=== PATIENT | female | born 1940 | race Caucasian/White ===

== ENCOUNTER → 2020-02-12 14:26 | Outpatient (BNVA) | payer MEDICARE, OTHER, SELFPAY | PROVIDERS: PCP Internal Medicine Medical Oncology; Visit Provider Internal Medicine | DX: I82.409 Acute embolism and thrombosis of unspecified deep veins of unspecified lower extremity (principal); Z79.01 Long term (current) use of anticoagulants; Z51.81 Encounter for therapeutic drug level monitoring | CPT/HCPCS: 85610; 99211; 99212 ==

== ENCOUNTER → 2020-02-17 14:44 | Outpatient (BNVA) | payer MEDICARE, OTHER, SELFPAY | PROVIDERS: PCP Internal Medicine Medical Oncology; Visit Provider Internal Medicine | DX: I82.409 Acute embolism and thrombosis of unspecified deep veins of unspecified lower extremity (principal); Z51.81 Encounter for therapeutic drug level monitoring; Z79.01 Long term (current) use of anticoagulants | CPT/HCPCS: 85610; 99211 ==

== ENCOUNTER → 2020-02-24 14:05 | Outpatient (BNVA) | payer MEDICARE, OTHER, SELFPAY | PROVIDERS: PCP Internal Medicine Medical Oncology; Visit Provider Internal Medicine | DX: Z86.718 Personal history of other venous thrombosis and embolism (principal); Z51.81 Encounter for therapeutic drug level monitoring; Z79.01 Long term (current) use of anticoagulants | CPT/HCPCS: 85610; 99211 ==

== ENCOUNTER → 2020-03-05 14:24 | Outpatient (BNVA) | payer MEDICARE, OTHER, SELFPAY | PROVIDERS: PCP Internal Medicine Medical Oncology; Visit Provider Internal Medicine | DX: I82.409 Acute embolism and thrombosis of unspecified deep veins of unspecified lower extremity (principal); Z51.81 Encounter for therapeutic drug level monitoring; Z79.01 Long term (current) use of anticoagulants | CPT/HCPCS: 85610; 99211 ==

== ENCOUNTER → 2020-03-23 10:35 | Outpatient (BNVA) | payer MEDICARE, OTHER, SELFPAY | PROVIDERS: PCP Internal Medicine Medical Oncology; Visit Provider Internal Medicine | DX: I82.409 Acute embolism and thrombosis of unspecified deep veins of unspecified lower extremity (principal); Z51.81 Encounter for therapeutic drug level monitoring; Z79.01 Long term (current) use of anticoagulants | CPT/HCPCS: 85610; 99211 ==

== ENCOUNTER → 2020-04-06 10:13 | Outpatient (BNVA) | payer MEDICARE, OTHER, SELFPAY | PROVIDERS: PCP Internal Medicine Medical Oncology; Visit Provider Internal Medicine | DX: I82.409 Acute embolism and thrombosis of unspecified deep veins of unspecified lower extremity (principal); Z51.81 Encounter for therapeutic drug level monitoring; Z79.01 Long term (current) use of anticoagulants | CPT/HCPCS: 85610; 99211 ==

== ENCOUNTER → 2020-04-10 11:29 | Outpatient (BNVA) | payer MEDICARE, OTHER, SELFPAY | PROVIDERS: PCP Internal Medicine Medical Oncology; Visit Provider Internal Medicine | DX: I82.409 Acute embolism and thrombosis of unspecified deep veins of unspecified lower extremity (principal); Z51.81 Encounter for therapeutic drug level monitoring; Z79.01 Long term (current) use of anticoagulants | CPT/HCPCS: 85610; 99211 ==

== ENCOUNTER → 2020-04-22 09:40 | Outpatient (BNVA) | payer MEDICARE, OTHER, SELFPAY | PROVIDERS: PCP Internal Medicine Medical Oncology; Visit Provider Internal Medicine | DX: I82.409 Acute embolism and thrombosis of unspecified deep veins of unspecified lower extremity (principal); Z51.81 Encounter for therapeutic drug level monitoring; Z79.01 Long term (current) use of anticoagulants | CPT/HCPCS: 85610; 99211 ==

== ENCOUNTER → 2020-04-27 14:10 | Outpatient (BNVA) | payer MEDICARE, OTHER, SELFPAY | PROVIDERS: PCP Internal Medicine Medical Oncology; Visit Provider Internal Medicine | DX: I82.409 Acute embolism and thrombosis of unspecified deep veins of unspecified lower extremity (principal); Z51.81 Encounter for therapeutic drug level monitoring; Z79.01 Long term (current) use of anticoagulants | CPT/HCPCS: 85610; 99211 ==

== ENCOUNTER → 2020-05-05 13:39 | Outpatient (BNVA) | payer MEDICARE, OTHER, SELFPAY | PROVIDERS: PCP Internal Medicine Medical Oncology; Visit Provider Internal Medicine | DX: I82.409 Acute embolism and thrombosis of unspecified deep veins of unspecified lower extremity (principal); Z51.81 Encounter for therapeutic drug level monitoring; Z79.01 Long term (current) use of anticoagulants | CPT/HCPCS: 85610; 99211 ==

== ENCOUNTER 2021-05-19 10:46 | Outpatient (REF) | payer MEDICARE, OTHER, SELFPAY ==
[2021-05-19 13:47] LABS: MANUAL DIFF FLAG NO
[2021-05-19 13:57] LABS: Basophils Absolute Auto 0.1 X10*3/uL (0.0-0.2); Basophils Percent Auto 0.8 % (0-2); Eosinophils Absolute Auto 0.1 X10*3/uL (0.0-0.4); Eosinophils Percent Auto 1.3 % (0-4); Hematocrit 41.2 % (37.0-47.0); Hemoglobin 13.2 g/dl (12.0-16.0); Imm Gran Abs Auto 0.05 X10*3/uL (0.00-0.03); Imm Gran Pct Auto 0.5 % (0.0-0.4); Lymphocytes Absolute Auto 2.5 X10*3/uL (1.2-4.9); Lymphocytes Percent Auto 24.6 % (20-40); Mean Corpuscular Hemoglobin 33.1 pg (27.0-33.0); Mean Corpuscular Volume 103.3 fL (80.0-98.0); Mean Platelet Volume 10.4 fL (9.4-12.3); Monocytes Absolute Auto 0.8 X10*3/uL (0.1-1.2); Monocytes Percent Auto 7.8 % (2-11); Neutrophils Absolute Auto 6.6 x10*3/uL (2.0-8.3); Platelet Count 281 X10*3/uL (160-400); Red Blood Count 3.99 X10*6/uL (4.20-5.50); Red Cell Distribution Width 13.9 % (11.0-16.0); White Blood Count 10.2 X10*3/uL (4.8-10.8)
[2021-05-19 14:20] LABS: Alanine Aminotransferase 83 U/L (0-31); Alkaline Phosphatase 250 U/L (39-117); Anion Gap 16 (12-20); Aspartate Amino Transferase 29 U/L (5-31); Bilirubin Total 0.6 mg/dL (0.0-1.0); Blood Urea Nitrogen 23 mg/dL (9-16); Carbon Dioxide 23 mmol/L (22-29); Chloride 107 mmol/L (96-108); Cholesterol 171 mg/dL; Estimated Glomerular Filt Rate 54; Glucose Random 97 mg/dL (60-115); HDL Cholesterol 50 mg/dL; LDL Cholesterol Calculated 91 mg/dl; Potassium 4.8 mmol/L (3.3-5.1); Sodium 141 mmol/L (135-145); Total Protein 6.6 g/dL (6.5-8.0); Triglycerides 152 mg/dL
[2021-05-19 14:30] LABS: Vitamin D 25-OH Total 34.5 ng/mL (>30)
[2021-05-19 14:52] LABS: Calcium 9.8 mg/dL (8.4-10.2)
== END 2021-05-19 10:47 | disposition home or self-care (01) ==
LOC: HO.10HDL 10:46
PROVIDERS: PCP Internal Medicine Medical Oncology; Visit Provider Internal Medicine Medical Oncology
DX: I10 Essential (primary) hypertension (principal); E78.5 Hyperlipidemia, unspecified; E55.9 Vitamin D deficiency, unspecified
CPT/HCPCS: 36415; 80053; 80061; 82306; 85025

== ENCOUNTER 2021-10-07 09:25 | Outpatient (REF) | payer MEDICARE, OTHER, SELFPAY ==
--- NOTE | ~2021-10-07 | MM_ITS ---
EXAMINATION: MM SCREENING DIGITAL BREAST TOMOSYNTHESIS, BILATERAL CLINICAL INFORMATION: Screening. Asymptomatic. The lifetime risk of breast cancer based on the Tyrer-Cuzick Model is 0.8%. COMPARISON: Mammography: November 21, 2016 and studies dating back to April 09, 2009 TECHNIQUE: Digital breast tomosynthesis is performed in both the craniocaudal and mediolateral oblique views along with computer-aided detection (CAD). Synthesized 2D images are generated from the tomosynthesis. FINDINGS: There are scattered areas of fibroglandular density (ACR BI-RADS breast composition Category b). There are no significant masses, abnormal calcifications, or other abnormalities. There is stable bilateral nipple inversion. MM/MM tomosynthesis screening BI IMPRESSION: There are no significant changes from prior study. ASSESSMENT: BI-RADS 1: Negative RECOMMENDATION: Routine annual mammography screening. This patient's information was entered into a reminder system with a target due date for their next mammogram.
== END 2021-10-07 09:26 | disposition home or self-care (01) ==
LOC: HO.MAMMO 09:25
PROVIDERS: PCP Internal Medicine Medical Oncology; Visit Provider Internal Medicine Medical Oncology
DX: Z12.31 Encounter for screening mammogram for malignant neoplasm of breast (principal)
CPT/HCPCS: 77063; 77067

== ENCOUNTER 2022-04-29 13:24 | Outpatient (REF) | payer MEDICARE, OTHER, SELFPAY ==
[2022-04-29 13:39] LABS: MANUAL DIFF FLAG NO
[2022-04-29 14:33] LABS: Basophils Absolute Auto 0.1 X10*3/uL (0.0-0.2); Basophils Percent Auto 0.8 % (0-2); Eosinophils Absolute Auto 0.1 X10*3/uL (0.0-0.4); Eosinophils Percent Auto 1.3 % (0-4); Imm Gran Abs Auto 0.03 X10*3/uL (0.00-0.03); Imm Gran Pct Auto 0.3 % (0.0-0.4); Lymphocytes Absolute Auto 4.1 X10*3/uL (1.2-4.9); Lymphocytes Percent Auto 36.7 % (20-40); Mean Corpuscular HGB Conc 32.6 g/dl (31.0-35.0); Mean Corpuscular Hemoglobin 33.7 pg (27.0-33.0); Mean Corpuscular Volume 103.6 fL (80.0-98.0); Monocytes Absolute Auto 0.6 X10*3/uL (0.1-1.2); Monocytes Percent Auto 5.7 % (2-11); Neutrophils Absolute Auto 6.2 x10*3/uL (2.0-8.3); Neutrophils Percent Auto 55.2 % (45-73); Platelet Count 263 X10*3/uL (160-400); Red Blood Count 4.15 X10*6/uL (4.20-5.50); Red Cell Distribution Width 13.7 % (11.0-16.0); White Blood Count 11.1 X10*3/uL (4.8-10.8)
[2022-04-29 15:48] LABS: Alanine Aminotransferase 11 U/L (0-31); Albumin Level 4.2 g/dL (3.5-5.0); Alkaline Phosphatase 90 U/L (39-117); Anion Gap 14 (12-20); Aspartate Amino Transferase 17 U/L (5-31); Bilirubin Total 0.8 mg/dL (0.0-1.0); Blood Urea Nitrogen 12 mg/dL (9-16); Calcium 9.5 mg/dL (8.4-10.2); Carbon Dioxide 23 mmol/L (22-29); Chloride 109 mmol/L (96-108); Cholesterol 186 mg/dL; Estimated Glomerular Filt Rate > 60; Glucose Fasting 91 mg/dL (60-99); HDL Cholesterol 60 mg/dL; LDL Cholesterol Calculated 101 mg/dl; Potassium 4.3 mmol/L (3.3-5.1); Sodium 142 mmol/L (135-145); Total Protein 6.5 g/dL (6.5-8.0); Triglycerides 125 mg/dL
[2022-04-29 16:18] LABS: Folate 4.1 ng/mL (> or = 4.0); Vitamin B12 252 pg/mL (200-900)
== END 2022-04-29 13:25 | disposition home or self-care (01) ==
LOC: HO.LAB 13:24
PROVIDERS: PCP Internal Medicine Medical Oncology; Visit Provider Internal Medicine Medical Oncology
DX: E78.5 Hyperlipidemia, unspecified (principal); E66.3 Overweight; D75.89 Other specified diseases of blood and blood-forming organs
CPT/HCPCS: 36415; 80053; 80061; 82607; 82746; 85025

== ENCOUNTER 2023-03-27 17:06 | Outpatient (REF) | payer MEDICARE, OTHER, SELFPAY | END 2023-03-27 17:07 | disposition home or self-care (01) | LOC: HO.LNP 17:06 | PROVIDERS: Visit Provider Internal Medicine Medical Oncology | DX: H57.89 Other specified disorders of eye and adnexa (principal) | CPT/HCPCS: 87070; 87205 ==

== ENCOUNTER 2023-06-05 14:27 | Outpatient (REF) | payer MEDICARE, OTHER, SELFPAY ==
--- NOTE | ~2023-06-05 | XR_ITS ---
EXAMINATION: XR HAND, RIGHT XR HIP, RIGHT CLINICAL INFORMATION: Right-sided hand pain and hip pain COMPARISON: CT abdomen pelvis 01/24/2017 TECHNIQUE: 5 views of the right hand and wrist Two views of the right hip. FINDINGS: Hand and wrist: Marked degenerative changes are present at the first CMC joint. Degenerative changes are present at the interphalangeal joints, most marked at the first DIP joint with marked swelling and osteophytes. Vascular calcifications are seen. No acute fractures or dislocations are seen. Some scattered areas of periarticular calcification are noted. Right hip: Right total hip prosthesis is present. Prosthetic components are intact. There is no evidence of a fracture or dislocation. XR/XR hand wrist RT IMPRESSION: 1. Degenerative changes in the right hand and wrist as described above. 2. Right total hip prosthesis without evidence of complication.
--- NOTE | ~2023-06-05 | XR_ITS ---
EXAMINATION: XR HAND, RIGHT XR HIP, RIGHT CLINICAL INFORMATION: Right-sided hand pain and hip pain COMPARISON: CT abdomen pelvis 01/24/2017 TECHNIQUE: 5 views of the right hand and wrist Two views of the right hip. FINDINGS: Hand and wrist: Marked degenerative changes are present at the first CMC joint. Degenerative changes are present at the interphalangeal joints, most marked at the first DIP joint with marked swelling and osteophytes. Vascular calcifications are seen. No acute fractures or dislocations are seen. Some scattered areas of periarticular calcification are noted. Right hip: Right total hip prosthesis is present. Prosthetic components are intact. There is no evidence of a fracture or dislocation. XR/XR hip RT min 2V IMPRESSION: 1. Degenerative changes in the right hand and wrist as described above. 2. Right total hip prosthesis without evidence of complication.
== END 2023-06-05 14:28 | disposition home or self-care (01) ==
LOC: HO.XRAY 14:27
PROVIDERS: PCP Internal Medicine Medical Oncology; Visit Provider Internal Medicine Medical Oncology
DX: M25.551 Pain in right hip (principal); M79.641 Pain in right hand
CPT/HCPCS: 73110; 73130; 73502

== ENCOUNTER 2023-07-04 13:38 | Emergency (ER) | payer MEDICARE, OTHER, SELFPAY ==
--- NOTE | ~2023-07-04 | CT_ITS ---
EXAMINATION: CT HEAD WITHOUT CONTRAST CT CERVICAL SPINE WITHOUT CONTRAST CLINICAL INFORMATION: Fall. On Eliquis COMPARISON: CT head September 28, 2017 TECHNIQUE: Imaging was performed from the skull base to vertex without intravenous administration of contrast. In addition, helical noncontrast CT imaging was acquired through the cervical spine and source images were reviewed along with axial reconstructions and sagittal and coronal MPRs. [This CT examination was performed using dose optimization techniques as appropriate, variously including the following: *Automated exposure control *Adjustment of mA and/or kV according to patient size (this includes techniques or standardized protocols for targeted exams where dose is matched to indication/reason for exam; i.e. extremities or head) *Use of iterative reconstruction technique] DLP: 866 mGy-cm FINDINGS: HEAD: No intracranial mass, hemorrhage, or midline shift is visualized. There is generalized global volume loss. There is moderate prominence of the ventricles and the sulci . There is mild hypodensity of the periventricular white matter due to chronic small vessel ischemic disease. There are vascular calcifications of the internal carotid arteries bilaterally. No extra-axial collections are identified. The paranasal sinuses and mastoid air cells are well aerated. CERVICAL SPINE: There is no evidence of acute cervical spine fracture. Vertebral bodies remain normal in height. Cervical vertebrae have normal alignment. There is multilevel degenerative spondylosis of the cervical spine with disc height narrowing and endplate spurs and facet joint arthrosis No pre- or paravertebral soft tissue abnormality is identified. Limited assessment of the lung apices is unremarkable. CT/CT cervical spine wo IV con IMPRESSION: 1. No acute intracranial pathology. 2. No CT evidence of acute cervical spine fracture or traumatic subluxation
--- NOTE | ~2023-07-04 | XR_ITS ---
EXAMINATION: XR HAND/WRIST, RIGHT CLINICAL INFORMATION: Fall, pain, decreased range of motion of fingers. COMPARISON: X-ray 06/05/2023 TECHNIQUE: 5 views of the right hand and wrist. FINDINGS: Osteopenia. There is a mildly displaced distal radial fracture. There is cortical offset in the distal ulna, suspicious for a mildly displaced fracture. Ulna negative variance. There is an acute, mildly displaced fracture of the proximal shaft of the fourth proximal phalanx. Mildly displaced fracture of the proximal base of the fourth proximal phalanx,, with likely intra-articular extension. Findings new from previous. Fourth finger soft tissue swelling. There is deformity and overlapping osseous structures in the distal fifth metatarsal neck,, suspicious for a fracture. Deformity with mixed lucencies and sclerosis of the distal fourth metatarsal neck, from possible fracture. Clinically correlate. The fingers are flexed in positioning, limiting evaluation. Severe first CMC osteoarthritis. Ulna negative variance. Vascular calcification. Soft tissue swelling of the wrist. XR/XR hand wrist RT IMPRESSION: 1. Acute, mildly displaced distal radial fracture. 2. Suspected acute mildly displaced distal ulnar fracture. 3. Acute, displaced fourth proximal phalanx fracture, detailed above. 4. Question fractures of the distal fifth metacarpal neck and fourth metacarpal neck. This is of indeterminate age. Clinically correlate. 5. Osteopenia limits evaluation. 6. Soft tissue swelling.
[2023-07-04 14:09] VITALS: BP 97/49; PULSE 52; RESP 16; TEMP 36.6; O2SAT 100; BMI 28.5
--- NOTE | 2023-07-04 14:09 | ED_ITS ---
HPI - Fall General Chief Complaint: Fall Stated Complaint: Fall Multiple Complaints Time Seen by Provider: 07/04/23 14:27 Source: patient Mode of arrival: ambulatory History of Present Illness HPI Narrative: 83-year-old female on chronic anticoagulation sustained mechanical fall when bending over to moss picker an item off of the floor, she denies loss of consciousness but did have head strike and also has pain to the right wrist with associated bruising. Related Data Home Medications ?Medication ?Instructions ?Recorded ?Confirmed amlodipine 10 mg tablet 10 mg PO DAILY 03/23/20 05/05/20 atenolol 50 mg tablet 50 mg PO QAM 03/23/20 05/05/20 cetirizine 10 mg tablet 10 mg PO DAILY 03/23/20 05/05/20 cholecalciferol (vitamin D3) 25 25 mcg PO DAILY 03/23/20 05/05/20 mcg (1,000 unit) tablet furosemide 20 mg tablet 20 mg PO DAILY 03/23/20 05/05/20 loperamide 2 mg capsule 2 mg PO QID PRN 03/23/20 05/05/20 omeprazole 20 mg capsule,delayed 20 mg PO DAILY 03/23/20 05/05/20 release potassium chloride 10 mEq 20 meq PO QAM 03/23/20 05/05/20 tablet,extended release prochlorperazine maleate 5 mg 10 mg PO Q6H PRN nausea 03/23/20 05/05/20 tablet simvastatin 20 mg tablet 20 mg PO DAILY 03/23/20 05/05/20 tramadol 50 mg tablet 50 mg PO TID PRN 03/23/20 05/05/20 trazodone 50 mg tablet 50 mg PO BEDTIME 03/23/20 05/05/20 hydromorphone 2 mg tablet mg PO 04/27/20 05/05/20 lacosamide 100 mg tablet 100 mg PO BID 04/27/20 05/05/20 enoxaparin 40 mg/0.4 mL mg subcut 05/05/20 05/05/20 subcutaneous syringe lacosamide 50 mg tablet 50 mg PO BEDTIME 05/05/20 05/05/20 Previous Rx's ?Medication ?Instructions ?Recorded warfarin 2 mg tablet 2 mg PO DAILY #90 tabs 02/12/20 Allergies Allergy/AdvReac Type Severity Reaction Status Date / Time penicillin V Allergy Unknown Rash Verified 07/04/23 14:13 Penicillins [PENICILLINS] Allergy Unknown RASH Verified 07/04/23 14:13 Review of Systems 2 Review of Systems: Pertinent positives and negatives as stated in HPI PMFSH Past Medical History Source: nursing notes reviewed Social History Social History Advance Directives: No Advance Directives Information Provided: Yes Physical Exam 2 Vital Signs: Vital Signs: Last Vital Signs Temp 97.9 F 07/04/23 14:09 Pulse 52 07/04/23 14:09 Resp 16 07/04/23 14:09 BP 97/49 L 07/04/23 14:09 Pulse Ox 100 07/04/23 14:09 O2 Del Method Room Air 07/04/23 14:09 BMI result Body Mass Index 28.5 VITAL SIGNS: Reviewed. GENERAL: Well developed, well nourished, in no acute distress. HEAD: Normocephalic/contusion to mid forehead EYES: PERRLA, EOMI EARS: Ext canals without abnormality NOSE: Nares patent bilateral OROPHARYNX: no oral lesions noted, posterior pharynx clear NECK: Supple, no adenopathy LUNGS: Normal breath sounds. No adventitious sounds or accessory muscle use. SpO2<100> CARDIOVASCULAR: Regular rate and rhythm without noted murmurs ABDOMEN: Soft, non-tender, non-distended with bowel sounds. PELVIS: Stable, nontender MUSCULOSKELETAL: No tenderness, deformities, or effusions noted on gross inspection. EXTREMITIES: No cyanosis, clubbing or edema. RIGHT UPPER EXTREMITY: There is noted deformity at wrist, but neurovascular intact, also deformity noted of 4th and 5th PIP with ecchymosis SKIN: Inspection of the skin reveals no rashes NEUROLOGIC: Alert and oriented x 4. Strength and sensation to light touch were grossly intact x 4. Course Course Course Narrative: This is a rapid medical exam completed by Christine MELGOZAN: Additional HPI, ROS, PE not included below will be deferred to primary provider. Bent over to pick something up and fell onto her face. Denies dizziness, lightheadedness, LOC, or CP prior the falling. Also fell in the beginning of June with an injury to the right hand. States she has pain, swelling, and bruising to the right hand and fingers. Reports occassional shortness of breath Medical Decision Making Medical Decision Making [facility] Narrative: 83-year-old female with history and clinical presentation consistent with mechanical fall and review of imaging studies negative for intracranial hemorrhage or mass effect and cervical spine imaging does not demonstrate any fracture or subluxation. X-ray consistent with radius and ulnar fractures minimally displaced, sugar-tong placed, in addition there is mildly displaced 4th and 5th digit fractures which were also splinted. Review of all laboratory investigations demonstrates noninfectious leukocytosis without anemia or thrombocytopenia. Chemistry indices negative for YOVANI or electrolyte/liver enzyme derangements. All results and findings discussed with the patient and her daughter at bedside and they have opted follow-up with [facility] for the fractures, they were given discharge precautions. Differential Diagnosis Differential Diagnoses: The differential diagnosis associated with the presentation includes Please see the discussion above Admission/Observation Consideration of admission/observation: Escalation of care including admission/observation considered Please see the discussion above Lab Data [facility] Lab Attestation statement: I reviewed the patient's lab results. Please see the discussion above 07/04/23 15:19 07/04/23 15:19 Labs: Lab Results 07/04/23 Range/Units 15:19 WBC 12.7 H (4.8-10.8) X10*3/uL RBC 3.65 L (4.20-5.50) X10*6/uL Hgb 12.9 (12.0-16.0) g/dl Hct 38.3 (37.0-47.0) % MCV 104.9 H (80.0-98.0) fL MCH 35.3 H (27.0-33.0) pg MCHC 33.7 (31.0-35.0) g/dl RDW 13.8 (11.0-16.0) % Plt Count 197 D (160-400) X10*3/uL MPV 9.8 (9.4-12.3) fL Immature Gran % (Auto) 0.4 (0.0-0.4) % Neut % (Auto) 76.9 H (45-73) % Lymph % (Auto) 16.2 L (20-40) % [place] % (Auto) 5.4 (2-11) % Eos % (Auto) 0.6 (0-4) % Baso % (Auto) 0.5 (0-2) % Lymph # (Auto) 2.1 (1.2-4.9) X10*3/uL [place] # (Auto) 0.7 (0.1-1.2) X10*3/uL Eos # (Auto) 0.1 (0.0-0.4) X10*3/uL Baso # (Auto) 0.1 (0.0-0.2) X10*3/uL Abs Immat Gran (auto) 0.05 H (0.00-0.03) X10*3/uL Absolute Neuts (auto) 9.7 H (2.0-8.3) x10*3/uL Absolute Nucleated RBC 0.000 (0.0-0.012) X10*3/uL Nucleated RBC % (auto) 0.0 (0.0-0.2) /100WBC Sodium 137 (135-145) mmol/L Potassium 5.1 (3.3-5.1) mmol/L Chloride 110 H (96-108) mmol/L Carbon Dioxide 16 L (22-29) mmol/L Anion Gap 16 (12-20) BUN 17 H (9-16) mg/dL Creatinine 0.88 (0.5-1.4) mg/dL Estim Creat Clear Calc 40.4 Estimated GFR > 60 Random Glucose 99 (60-115) mg/dL Calcium 9.3 (8.4-10.2) mg/dL Total Bilirubin 0.3 (0.0-1.0) mg/dL AST 25 (5-31) U/L ALT 13 (0-31) U/L Alkaline Phosphatase 148 H (39-117) U/L Total Protein 6.8 (6.5-8.0) g/dL Albumin 3.7 (3.5-5.0) g/dL Radiology Impression Discussion of test interpretation with radiology: I have reviewed the radiologist's reading. Radiologist Impression: Please see the discussion above External Record Review External record reviewed: Outpatient record, Prior outpatient labs and Prior outpatient radiology Chronic Conditions Patient?s care impacted by: Hypertension Chronic anticoagulation Critical Care Time Critical Care Time Critical Care Time: Yes Total Critical Care Time: 45 Attestation: I personally attest to this time spent taking care of the patient. Discharge Plan Discharge Clinical Impression: Fracture of radius and ulna, closed, Fracture of proximal phalanx of digit of right hand, Forehead contusion Patient Disposition: Home, Self-Care Instructions: Arm Fracture in Adults (ED), Finger Fracture (ED), How to Use a Sling (ED), Splint Care (ED), Facial Contusion (ED) Additional Instructions: 1. Resume all home medications as prescribed. 2. Recommend [id number] Tylenol/ibuprofen as needed for pain control. May apply ice for 5-10 minutes, 3 to 4 times a day. 3. You have elected to follow-up with [facility]. Return to the emergency room for any worsening of symptoms. Prescriptions: No Action warfarin 2 mg tablet 2 mg PO DAILY Qty: 90 0RF Protocol: Dose Management Condition: Monday (Week One) Dose/Route: 2 mg Instruction: 1 x 2 mg milliliter Condition: Monday Dose/Route: 1 mg Instruction: 0.5 x 2 mg milliliters Condition: Monday Dose/Route: 2 mg Instruction: 1 x 2 mg milliliter Condition: Monday Dose/Route: 1 mg Instruction: 0.5 x 2 mg milliliters Condition: Dose/Route: 2 mg Instruction: 1 x 2 mg milliliter Condition: Monday Dose/Route: 1 mg Instruction: 0.5 x 2 mg milliliters Condition: Monday Dose/Route: 2 mg Instruction: 1 x 2 mg milliliter Condition: Monday (Week Two) Dose/Route: 2 mg Instruction: 1 x 2 mg milliliter Condition: Monday Dose/Route: 1 mg Instruction: 0.5 x 2 mg milliliters Condition: Monday Dose/Route: 2 mg Instruction: 1 x 2 mg milliliter Condition: Monday Dose/Route: 1 mg Instruction: 0.5 x 2 mg milliliters Condition: Dose/Route: 2 mg Instruction: 1 x 2 mg milliliter Condition: Monday Dose/Route: 1 mg Instruction: 0.5 x 2 mg milliliters Condition: Monday Dose/Route: 2 mg Instruction: 1 x 2 mg milliliter Protocol Text: Adjustment Start Date: Monday05/05/20 INR Value: 2.8 INR Date: 05/05/20 Additional Instructions: EAT A SERVING OF GREENS OR BLUEBERRIES TO HELP LOWER THE INR JUST A LITTLE atenolol 50 mg tablet 50 mg PO QAM furosemide 20 mg tablet 20 mg PO DAILY potassium chloride 10 mEq tablet extended release 20 meq PO QAM cetirizine 10 mg tablet 10 mg PO DAILY trazodone 50 mg tablet 50 mg PO BEDTIME loperamide 2 mg capsule 2 mg PO QID PRN prochlorperazine maleate 5 mg tablet 10 mg PO Q6H PRN (Reason: nausea) tramadol 50 mg tablet 50 mg PO TID PRN cholecalciferol (vitamin D3) 25 mcg (1,000 unit) tablet 25 mcg PO DAILY omeprazole 20 mg capsule,delayed release(DR/EC) 20 mg PO DAILY simvastatin 20 mg tablet 20 mg PO DAILY amlodipine 10 mg tablet 10 mg PO DAILY Vimpat 100 mg tablet 100 mg PO BID hydromorphone 2 mg tablet PO enoxaparin 40 mg/0.4 mL syringe subcut Protocol: Dose Management Condition: Monday (Week One) Dose/Route: 2 mg Instruction: 1 x 2 mg milliliter Condition: Monday Dose/Route: 1 mg Instruction: 0.5 x 2 mg milliliters Condition: Monday Dose/Route: 2 mg Instruction: 1 x 2 mg milliliter Condition: Monday Dose/Route: 1 mg Instruction: 0.5 x 2 mg milliliters Condition: Dose/Route: 2 mg Instruction: 1 x 2 mg milliliter Condition: Monday Dose/Route: 1 mg Instruction: 0.5 x 2 mg milliliters Condition: Monday Dose/Route: 2 mg Instruction: 1 x 2 mg milliliter Condition: Monday ( Two) Dose/Route: 2 mg Instruction: 1 x 2 mg milliliter Condition: Monday Dose/Route: 1 mg Instruction: 0.5 x 2 mg milliliters Condition: Monday Dose/Route: 2 mg Instruction: 1 x 2 mg milliliter Condition: Monday Dose/Route: 1 mg Instruction: 0.5 x 2 mg milliliters Condition: Dose/Route: 2 mg Instruction: 1 x 2 mg milliliter Condition: Monday Dose/Route: 1 mg Instruction: 0.5 x 2 mg milliliters Condition: Monday Dose/Route: 2 mg Instruction: 1 x 2 mg milliliter Protocol Text: Adjustment Start Date: Monday05/05/20 INR Value: 2.8 INR Date: 05/05/20 Additional Instructions: EAT A SERVING OF GREENS OR BLUEBERRIES TO HELP LOWER THE INR JUST A LITTLE Vimpat 50 mg tablet 50 mg PO BEDTIME Referrals: Leandro Trent MD [Primary Care Provider] - Interventions: ED Discharge Assessment Last Done: 07/04/23 19:13 Print Language: Cook Islander
[2023-07-04 15:23] LABS: MANUAL DIFF FLAG NO
[2023-07-04 15:25] LABS: Basophils Absolute Auto 0.1 X10*3/uL (0.0-0.2); Basophils Percent Auto 0.5 % (0-2); Eosinophils Absolute Auto 0.1 X10*3/uL (0.0-0.4); Eosinophils Percent Auto 0.6 % (0-4); Hematocrit 38.3 % (37.0-47.0); Hemoglobin 12.9 g/dl (12.0-16.0); Imm Gran Abs Auto 0.05 X10*3/uL (0.00-0.03); Imm Gran Pct Auto 0.4 % (0.0-0.4); Lymphocytes Absolute Auto 2.1 X10*3/uL (1.2-4.9); Lymphocytes Percent Auto 16.2 % (20-40); Mean Corpuscular HGB Conc 33.7 g/dl (31.0-35.0); Mean Corpuscular Hemoglobin 35.3 pg (27.0-33.0); Mean Corpuscular Volume 104.9 fL (80.0-98.0); Mean Platelet Volume 9.8 fL (9.4-12.3); Monocytes Absolute Auto 0.7 X10*3/uL (0.1-1.2); Monocytes Percent Auto 5.4 % (2-11); Neutrophils Absolute Auto 9.7 x10*3/uL (2.0-8.3); Neutrophils Percent Auto 76.9 % (45-73); Platelet Count 197 X10*3/uL (160-400); Red Blood Count 3.65 X10*6/uL (4.20-5.50); Red Cell Distribution Width 13.8 % (11.0-16.0); White Blood Count 12.7 X10*3/uL (4.8-10.8)
[2023-07-04 16:03] LABS: Alanine Aminotransferase 13 U/L (0-31); Albumin Level 3.7 g/dL (3.5-5.0); Alkaline Phosphatase 148 U/L (39-117); Anion Gap 16 (12-20); Aspartate Amino Transferase 25 U/L (5-31); Bilirubin Total 0.3 mg/dL (0.0-1.0); Blood Urea Nitrogen 17 mg/dL (9-16); Calcium 9.3 mg/dL (8.4-10.2); Carbon Dioxide 16 mmol/L (22-29); Chloride 110 mmol/L (96-108); Creatinine Clr Calc Pharmacy 40.4; Estimated Glomerular Filt Rate > 60; Glucose Random 99 mg/dL (60-115); Potassium 5.1 mmol/L (3.3-5.1); Sodium 137 mmol/L (135-145); Total Protein 6.8 g/dL (6.5-8.0)
[2023-07-04 19:13] VITALS: BP 101/52; PULSE 55; RESP 16; TEMP 36.6; O2SAT 100
== END 2023-07-04 19:14 | disposition home or self-care (01) ==
PROVIDERS: Nurse Practitioner Family; Emergency Provider Student in an Organized Health Care Education/Training Program; PCP Internal Medicine Medical Oncology
DX: S52.501A Unspecified fracture of the lower end of right radius, initial encounter for closed fracture (principal); S52.601A Unspecified fracture of lower end of right ulna, initial encounter for closed fracture; S62.614A Displaced fracture of proximal phalanx of right ring finger, initial encounter for closed fracture; S62.616A Displaced fracture of proximal phalanx of right little finger, initial encounter for closed fracture; S00.83XA Contusion of other part of head, initial encounter; Z79.01 Long term (current) use of anticoagulants; W18.30XA Fall on same level, unspecified, initial encounter; Y93.9 Activity, unspecified; Y92.9 Unspecified place or not applicable; Y99.9 Unspecified external cause status
CPT/HCPCS: 29125; 36415; 70450; 72125; 73110; 73130; 80053; 85025; 99282; 99284

== ENCOUNTER 2023-07-12 13:17 | Outpatient (REF) | payer MEDICARE, OTHER, SELFPAY | END 2023-07-12 13:18 | disposition home or self-care (01) | LOC: HO.HOSX 13:17 | PROVIDERS: Visit Provider Orthopaedic Surgery | DX: Z13.89 Encounter for screening for other disorder (principal) ==

== ENCOUNTER 2023-07-15 03:23 | Emergency (ER) | payer MEDICARE, OTHER, SELFPAY ==
--- NOTE | ~2023-07-15 | XR_ITS ---
EXAMINATION: XR LUMBAR SPINE CLINICAL INFORMATION: Low back pain COMPARISON: 09/28/2017 TECHNIQUE: Three views of the lumbar spine. FINDINGS: There is a mild levoscoliosis of the upper to mid lumbar spine. Alignment of the lumbar vertebral bodies and posterior elements appears anatomic. Vertebral body heights are maintained. Diffuse vertebral disc space narrowing with chronic appearing endplate irregularity/osteophyte formation. No acute fracture is seen. Sacroiliac joints appear intact with degenerative change. Partially visualized right hip arthroplasty hardware. There is atherosclerotic calcification along the aorta. XR/XR lumbar spine 2-3V IMPRESSION: No acute findings identified. Chronic appearing changes as noted above.
--- NOTE | ~2023-07-15 | XR_ITS ---
EXAMINATION: XR RIBS, RIGHT CLINICAL INFORMATION: Fall, pain COMPARISON: 09/28/2017 TECHNIQUE: 3 views of the right ribs were obtained. FINDINGS: No displaced rib fracture is seen. The lungs are clear with no focal consolidation. No evidence of pneumothorax, pulmonary edema, or pleural effusions. Cardiac silhouette appears at the upper limits of normal in size. Prominence of the upper mediastinum also appears stable. Calcification is present at the aortic arch. No acute osseous findings are seen. XR/XR ribs RT min 3V w CXR1V IMPRESSION: No displaced rib fracture identified.
[2023-07-15 03:32] VITALS: BP 148/45; BP 148/64; PULSE 78; RESP 17; TEMP 36.5; O2SAT 96; O2SAT 99; BMI 28.5
--- NOTE | 2023-07-15 03:47 | PC.NURSE ---
pt biba from home, a&ox4, respirations even and unlabored. reports x2 days of back pain, reports taking tylenol and tramadol without relief. pt reports she had a fall a week ago and fractured her right arm, right arm currently in a cast. pt denies chest pain, sob, n/v/d.
--- NOTE | 2023-07-15 04:42 | ED_ITS ---
HPI - Back Pain/Injury General Chief Complaint: Back Pain/Injury Stated Complaint: BACK PAIN/RT ARM PAIN Time Seen by Provider: 07/15/23 04:26 Source: patient Mode of arrival: EMS Limitations: no limitations History of Present Illness HPI Narrative: Patient had a mechanical fall on 07/03 at when she broke her right forearm tramadol for pain for last 2 days patient noticed pain in the right lower ribs in the back and lumbar area patient does have chronic cough no recent fall never had similar in the past does suffer with chronic low back pain as such Related Data Home Medications ?Medication ?Instructions ?Recorded ?Confirmed amlodipine 10 mg tablet 10 mg PO DAILY 03/23/20 05/05/20 atenolol 50 mg tablet 50 mg PO QAM 03/23/20 05/05/20 cetirizine 10 mg tablet 10 mg PO DAILY 03/23/20 05/05/20 cholecalciferol (vitamin D3) 25 25 mcg PO DAILY 03/23/20 05/05/20 mcg (1,000 unit) tablet furosemide 20 mg tablet 20 mg PO DAILY 03/23/20 05/05/20 loperamide 2 mg capsule 2 mg PO QID PRN 03/23/20 05/05/20 omeprazole 20 mg capsule,delayed 20 mg PO DAILY 03/23/20 05/05/20 release potassium chloride 10 mEq 20 meq PO QAM 03/23/20 05/05/20 tablet,extended release prochlorperazine maleate 5 mg 10 mg PO Q6H PRN nausea 03/23/20 05/05/20 tablet simvastatin 20 mg tablet 20 mg PO DAILY 03/23/20 05/05/20 tramadol 50 mg tablet 50 mg PO TID PRN 03/23/20 05/05/20 trazodone 50 mg tablet 50 mg PO BEDTIME 03/23/20 05/05/20 hydromorphone 2 mg tablet mg PO 04/27/20 05/05/20 lacosamide 100 mg tablet 100 mg PO BID 04/27/20 05/05/20 enoxaparin 40 mg/0.4 mL mg subcut 05/05/20 05/05/20 subcutaneous syringe lacosamide 50 mg tablet 50 mg PO BEDTIME 05/05/20 05/05/20 Previous Rx's ?Medication ?Instructions ?Recorded warfarin 2 mg tablet 2 mg PO DAILY #90 tabs 02/12/20 oxycodone 5 mg tablet 5 mg PO Q6H PRN pain #20 tabs 07/15/23 Allergies Allergy/AdvReac Type Severity Reaction Status Date / Time penicillin V Allergy Unknown Rash Verified 07/15/23 03:34 Penicillins [PENICILLINS] Allergy Unknown RASH Verified 07/15/23 03:34 Review of Systems Review of Systems: Yes all other systems are reviewed and are negative [facility] Social History Social History Smoked in Last 30 Days: No Use of substances other than those prescribed or required for medical reasons: No Advance Directives: No Advance Directives Information Provided: Yes Do you have a plan to hurt others: No Plan Physical Exam Vital Signs: Vital Signs: Last Vital Signs Temp 97.7 F 07/15/23 03:32 Pulse 71 07/15/23 06:07 Resp 18 07/15/23 06:07 BP 140/53 H 07/15/23 06:07 Pulse Ox 97 07/15/23 06:07 O2 Del Method Room Air 07/15/23 06:07 BMI result Body Mass Index 28.5 Appearance: Alert. Oriented X3. No acute distress. Eyes: PERRLA, No Nystagmus ENT: Pharynx normal. Oral Mucosa moist Neck: Normal inspection. Neck supple. CVS: Normal heart rate and rhythm. Pulses normal. Respiratory: No respiratory distress. Equal air entry bilateral, no wheezing/rales/rhonchi tenderness in right lower ribs posteriorly and lower lumbar area diffuse Abdomen: Soft and nontender. Bowel sounds are present, no mass palpable, no CVA tenderness Skin: Skin warm and dry. Normal skin color. Normal skin turgor. Extremities: No lower extremity edema. No calf tenderness right forearm in cast Neuro: Oriented X 3. No motor deficit. No sensory deficit.No cerebellar signs , cranial nerves II-XII intact Medications Administered Discontinued Medications Generic Name Dose Route Start Last Admin Trade Name Freq PRN Reason Stop Dose Admin Oxycodone HCl 5 mg 07/15/23 04:48 07/15/23 05:13 Oxycodone Hcl Immed Release 5 Mg Tablet PO 07/15/23 04:49 5 mg ONCE ONE Administration Medical Decision Making Medical Decision Making MDM Narrative: Patient with back pain x-ray of the ribs negative lower spine negative likely musculoskeletal chronic pain will discharge patient home on oxycodone Differential Diagnosis Differential Diagnoses: The differential diagnosis associated with the presentation includes Lumbar spine fracture/rib fracture Independent Interpretation I performed an independent interpretation of an: Plain X-Ray Radiology Impression Discussion of test interpretation with radiology: I have reviewed the radiologist's reading. Discharge Plan Discharge Clinical Impression: Back pain Patient Disposition: Home, Self-Care Instructions: Back Pain (ED) Additional Instructions: Pain medication as prescribed Follow-up with PCP if not better Your x-ray of the ribs and lower spine negative for fracture Prescriptions: New oxycodone 5 mg tablet 5 mg PO Q6H PRN (Reason: pain) Qty: 20 0RF Rx Instructions: Partial Fill upon patient request. No Action warfarin 2 mg tablet 2 mg PO DAILY Qty: 90 0RF Protocol: Dose Management Condition: Monday (Week One) Dose/Route: 2 mg Instruction: 1 x 2 mg milliliter Condition: Monday Dose/Route: 1 mg Instruction: 0.5 x 2 mg milliliters Condition: Monday Dose/Route: 2 mg Instruction: 1 x 2 mg milliliter Condition: Monday Dose/Route: 1 mg Instruction: 0.5 x 2 mg milliliters Condition: Dose/Route: 2 mg Instruction: 1 x 2 mg milliliter Condition: Monday Dose/Route: 1 mg Instruction: 0.5 x 2 mg milliliters Condition: Monday Dose/Route: 2 mg Instruction: 1 x 2 mg milliliter Condition: Monday (Week Two) Dose/Route: 2 mg Instruction: 1 x 2 mg milliliter Condition: Monday Dose/Route: 1 mg Instruction: 0.5 x 2 mg milliliters Condition: Monday Dose/Route: 2 mg Instruction: 1 x 2 mg milliliter Condition: Monday Dose/Route: 1 mg Instruction: 0.5 x 2 mg milliliters Condition: Dose/Route: 2 mg Instruction: 1 x 2 mg milliliter Condition: Monday Dose/Route: 1 mg Instruction: 0.5 x 2 mg milliliters Condition: Monday Dose/Route: 2 mg Instruction: 1 x 2 mg milliliter Protocol Text: Adjustment Start Date: Monday05/05/20 INR Value: 2.8 INR Date: 05/05/20 Additional Instructions: EAT A SERVING OF GREENS OR BLUEBERRIES TO HELP LOWER THE INR JUST A LITTLE atenolol 50 mg tablet 50 mg PO QAM furosemide 20 mg tablet 20 mg PO DAILY potassium chloride 10 mEq tablet extended release 20 meq PO QAM cetirizine 10 mg tablet 10 mg PO DAILY trazodone 50 mg tablet 50 mg PO BEDTIME loperamide 2 mg capsule 2 mg PO QID PRN prochlorperazine maleate 5 mg tablet 10 mg PO Q6H PRN (Reason: nausea) tramadol 50 mg tablet 50 mg PO TID PRN cholecalciferol (vitamin D3) 25 mcg (1,000 unit) tablet 25 mcg PO DAILY omeprazole 20 mg capsule,delayed release(DR/EC) 20 mg PO DAILY simvastatin 20 mg tablet 20 mg PO DAILY amlodipine 10 mg tablet 10 mg PO DAILY Vimpat 100 mg tablet 100 mg PO BID hydromorphone 2 mg tablet PO enoxaparin 40 mg/0.4 mL syringe subcut Protocol: Dose Management Condition: Monday (Week One) Dose/Route: 2 mg Instruction: 1 x 2 mg milliliter Condition: Monday Dose/Route: 1 mg Instruction: 0.5 x 2 mg milliliters Condition: Monday Dose/Route: 2 mg Instruction: 1 x 2 mg milliliter Condition: Monday Dose/Route: 1 mg Instruction: 0.5 x 2 mg milliliters Condition: Dose/Route: 2 mg Instruction: 1 x 2 mg milliliter Condition: Monday Dose/Route: 1 mg Instruction: 0.5 x 2 mg milliliters Condition: Monday Dose/Route: 2 mg Instruction: 1 x 2 mg milliliter Condition: Monday ( Two) Dose/Route: 2 mg Instruction: 1 x 2 mg milliliter Condition: Monday Dose/Route: 1 mg Instruction: 0.5 x 2 mg milliliters Condition: Monday Dose/Route: 2 mg Instruction: 1 x 2 mg milliliter Condition: Monday Dose/Route: 1 mg Instruction: 0.5 x 2 mg milliliters Condition: Dose/Route: 2 mg Instruction: 1 x 2 mg milliliter Condition: Monday Dose/Route: 1 mg Instruction: 0.5 x 2 mg milliliters Condition: Monday Dose/Route: 2 mg Instruction: 1 x 2 mg milliliter Protocol Text: Adjustment Start Date: Monday05/05/20 INR Value: 2.8 INR Date: 05/05/20 Additional Instructions: EAT A SERVING OF GREENS OR BLUEBERRIES TO HELP LOWER THE INR JUST A LITTLE Vimpat 50 mg tablet 50 mg PO BEDTIME Print Language: Turkmen
[2023-07-15] MEDS: oxyCODONE HCl Immed Release 5 MG TABLET PO (05:13)
--- NOTE | 2023-07-15 05:14 | PC.NURSE ---
pt medicated per may for 10/10 back pain, tolerated well with water.
[2023-07-15 06:07] VITALS: BP 140/53; PULSE 71; RESP 18; O2SAT 97
--- NOTE | 2023-07-15 06:44 | PC.NURSE ---
pt called daughter for transport, pt awaiting daughter to provide ride home.
[2023-07-15 07:38] VITALS: BP 140/53; PULSE 71; RESP 18; TEMP 36.5; O2SAT 97
== END 2023-07-15 07:21 | disposition home or self-care (01) ==
PROVIDERS: Emergency Provider Internal Medicine; PCP Internal Medicine Medical Oncology
DX: M54.50 Low back pain, unspecified (principal); R05.9 Cough, unspecified; R07.81 Pleurodynia; Z91.81 History of falling; Z79.899 Other long term (current) drug therapy
CPT/HCPCS: 71101; 72100; 99283; 99284

== ENCOUNTER 2023-10-23 16:05 | Outpatient (REF) | payer MEDICARE, OTHER, SELFPAY ==
[2023-10-23 16:26] LABS: MANUAL DIFF FLAG NO
[2023-10-23 16:45] LABS: Basophils Absolute Auto 0.1 X10*3/uL (0.0-0.2); Basophils Percent Auto 0.7 % (0-2); Eosinophils Absolute Auto 0.2 X10*3/uL (0.0-0.4); Eosinophils Percent Auto 1.1 % (0-4); Hematocrit 41.8 % (37.0-47.0); Hemoglobin 13.4 g/dl (12.0-16.0); Imm Gran Abs Auto 0.06 X10*3/uL (0.00-0.03); Imm Gran Pct Auto 0.4 % (0.0-0.4); Lymphocytes Absolute Auto 2.7 X10*3/uL (1.2-4.9); Lymphocytes Percent Auto 19.4 % (20-40); Mean Corpuscular HGB Conc 32.1 g/dl (31.0-35.0); Mean Corpuscular Hemoglobin 34.1 pg (27.0-33.0); Mean Corpuscular Volume 106.4 fL (80.0-98.0); Mean Platelet Volume 9.4 fL (9.4-12.3); Monocytes Absolute Auto 0.8 X10*3/uL (0.1-1.2); Monocytes Percent Auto 5.5 % (2-11); Neutrophils Percent Auto 72.9 % (45-73); Platelet Count 276 X10*3/uL (160-400); Red Blood Count 3.93 X10*6/uL (4.20-5.50); Red Cell Distribution Width 14.1 % (11.0-16.0); White Blood Count 13.7 X10*3/uL (4.8-10.8)
[2023-10-23 17:13] LABS: Alanine Aminotransferase 15 U/L (0-31); Albumin Level 3.9 g/dL (3.5-5.0); Alkaline Phosphatase 311 U/L (39-117); Anion Gap 16 (12-20); Aspartate Amino Transferase 37 U/L (5-31); Bilirubin Total 1.3 mg/dL (0.0-1.0); Blood Urea Nitrogen 15 mg/dL (9-16); Calcium 9.8 mg/dL (8.4-10.2); Carbon Dioxide 21 mmol/L (22-29); Chloride 108 mmol/L (96-108); Cholesterol 281 mg/dL (<200); Estimated Glomerular Filt Rate 55; Glucose Random 95 mg/dL (60-115); HDL Cholesterol 68 mg/dL (>40); LDL Cholesterol Calculated 186 mg/dL (<100); Potassium 4.9 mmol/L (3.3-5.1); Sodium 140 mmol/L (135-145); Total Protein 6.8 g/dL (6.5-8.0); Triglycerides 139 mg/dL (<150)
[2023-10-23 17:27] LABS: Vitamin D 25-OH Total 47.2 ng/mL (>30)
[2023-10-23 17:36] LABS: Folate 3.5 ng/mL (> or = 4.0); Vitamin B12 276 pg/mL (200-900)
== END 2023-10-23 16:06 | disposition home or self-care (01) ==
LOC: HO.LAB 16:05
PROVIDERS: PCP Internal Medicine Medical Oncology; Visit Provider Internal Medicine Medical Oncology
DX: E78.5 Hyperlipidemia, unspecified (principal); E55.9 Vitamin D deficiency, unspecified; D75.89 Other specified diseases of blood and blood-forming organs; E66.3 Overweight
CPT/HCPCS: 36415; 80053; 80061; 82306; 82607; 82746; 85025

== ENCOUNTER 2023-11-23 11:49 | Outpatient (REF) | payer MEDICARE, OTHER, SELFPAY ==
[2023-11-23 12:03] LABS: MANUAL DIFF FLAG NO
[2023-11-23 12:29] LABS: Basophils Absolute Auto 0.1 X10*3/uL (0.0-0.2); Eosinophils Absolute Auto 0.2 X10*3/uL (0.0-0.4); Eosinophils Percent Auto 1.6 % (0-4); Hematocrit 40.6 % (37.0-47.0); Hemoglobin 13.4 g/dl (12.0-16.0); Imm Gran Abs Auto 0.13 X10*3/uL (0.00-0.03); Imm Gran Pct Auto 1.1 % (0.0-0.4); Lymphocytes Absolute Auto 3.6 X10*3/uL (1.2-4.9); Lymphocytes Percent Auto 30.7 % (20-40); Mean Corpuscular Hemoglobin 34.6 pg (27.0-33.0); Mean Corpuscular Volume 104.9 fL (80.0-98.0); Mean Platelet Volume 9.7 fL (9.4-12.3); Monocytes Absolute Auto 0.6 X10*3/uL (0.1-1.2); Monocytes Percent Auto 4.9 % (2-11); Neutrophils Percent Auto 60.7 % (45-73); Platelet Count 303 X10*3/uL (160-400); Red Blood Count 3.87 X10*6/uL (4.20-5.50); Red Cell Distribution Width 14.7 % (11.0-16.0); White Blood Count 11.6 X10*3/uL (4.8-10.8)
[2023-11-23 12:58] LABS: Alanine Aminotransferase 45 U/L (0-31); Albumin Level 3.8 g/dL (3.5-5.0); Alkaline Phosphatase 638 U/L (39-117); Anion Gap 17 (12-20); Aspartate Amino Transferase 37 U/L (5-31); Bilirubin Total 2.3 mg/dL (0.0-1.0); Blood Urea Nitrogen 20 mg/dL (9-16); Carbon Dioxide 21 mmol/L (22-29); Chloride 104 mmol/L (96-108); Estimated Glomerular Filt Rate 57; Gamma Glutamyl Transpeptidase 1274 U/L (7-33); Glucose Random 81 mg/dL (60-115); Potassium 4.8 mmol/L (3.3-5.1); Sodium 137 mmol/L (135-145); Total Protein 6.8 g/dL (6.5-8.0)
== END 2023-11-23 11:50 | disposition home or self-care (01) ==
LOC: HO.LAB 11:49
PROVIDERS: PCP Internal Medicine Medical Oncology; Visit Provider Internal Medicine Medical Oncology
DX: I10 Essential (primary) hypertension (principal); D75.89 Other specified diseases of blood and blood-forming organs; R17 Unspecified jaundice
CPT/HCPCS: 36415; 80053; 82977; 85025

== ENCOUNTER 2023-11-27 11:00 | Outpatient (RCR) | payer MEDICARE, OTHER, SELFPAY ==
[2023-10-23 15:05] VITALS: BP 134/63; PULSE 50
== END 2023-12-08 13:30 | disposition home or self-care (01) ==
LOC: HO.PT 11:00
PROVIDERS: PCP Internal Medicine Medical Oncology; Visit Provider Internal Medicine Medical Oncology
DX: R26.9 Unspecified abnormalities of gait and mobility (principal); Z91.81 History of falling
CPT/HCPCS: 97110; 97161; 97530

== ENCOUNTER 2023-12-11 08:44 | Outpatient (REF) | payer MEDICARE, OTHER, SELFPAY ==
--- NOTE | ~2023-12-11 | US_ITS ---
EXAMINATION: US ABDOMEN COMPLETE CLINICAL INFORMATION: Elevated liver function tests. COMPARISON: CT abdomen and pelvis of 01/24/2017. TECHNIQUE: Real-time imaging of the abdominal viscera. Limited visualization due to bowel gas. FINDINGS: PANCREAS: Poorly visualized. ABDOMINAL AORTA: Limited visualization. INFERIOR VENA CAVA: Visualized portions are normal. LIVER: Redemonstration of intrahepatic and extrahepatic biliary ductal dilatation. Common duct measures 1.6 cm in diameter. Hepatic parenchymal heterogeneity and echogenicity could be associated with hepatocellular disease/hepatic steatosis and substantially limits visualization. Correlation with liver function tests and clinical exam recommended to determine further management. GALLBLADDER: Gallbladder wall thickening of 5 mm. Cholelithiasis with multiple stones. Possible 4 mm gallbladder polyp versus stone. COMMON BILE DUCT: Common duct measures 1.6 cm proximally, dilates to 2.4 cm before tapering to 1.8 cm distally, although visualization is limited due to bowel gas. RIGHT KIDNEY: No hydronephrosis. No renal calculi. Limited visualization. Increased renal echogenicity. The kidney measures 10.2 cm in maximum dimension. LEFT KIDNEY: No hydronephrosis. No renal calculi. Limited visualization. Increased renal echogenicity. The kidney measures 10.2 cm in maximum dimension. SPLEEN: Normal. The spleen measures 8.5 cm in maximum dimension. FREE FLUID: None. US/US abdomen complete IMPRESSION: 1. Redemonstration of marked intrahepatic and extrahepatic biliary ductal dilatation. 2. Hepatic parenchymal heterogeneity and echogenicity could be associated with hepatocellular disease/hepatic steatosis and substantially limits visualization. Correlation with liver function tests and clinical exam recommended to determine further management. 3. Cholelithiasis with multiple stones. Possible 4 mm gallbladder polyp versus stone. 4. Increased renal echogenicity. 5. CT scan should be considered for further evaluation. This study was presented today 12/11/2023 for interpretation. Stat results provided at this time as requested by referring provider. Electronically signed by: Taylor Khalil MD 12/11/2023 11:10 AM EDT
== END 2023-12-11 08:45 | disposition home or self-care (01) ==
LOC: HO.US 08:44
PROVIDERS: PCP Internal Medicine Medical Oncology; Visit Provider Internal Medicine Medical Oncology
DX: R17 Unspecified jaundice (principal); R79.89 Other specified abnormal findings of blood chemistry
CPT/HCPCS: 76700

== ENCOUNTER 2023-12-11 10:04 | Outpatient (REF) | payer MEDICARE, OTHER, SELFPAY ==
[2023-12-11 12:13] LABS: Alanine Aminotransferase 69 U/L (0-31); Albumin Level 3.8 g/dL (3.5-5.0); Alkaline Phosphatase 757 U/L (39-117); Anion Gap 14 (12-20); Aspartate Amino Transferase 144 U/L (5-31); Bilirubin Total 1.7 mg/dL (0.0-1.0); Blood Urea Nitrogen 20 mg/dL (9-16); Calcium 9.9 mg/dL (8.4-10.2); Carbon Dioxide 23 mmol/L (22-29); Chloride 105 mmol/L (96-108); Estimated Glomerular Filt Rate 52; Gamma Glutamyl Transpeptidase 2027 U/L (7-33); Glucose Random 89 mg/dL (60-115); Potassium 4.9 mmol/L (3.3-5.1); Sodium 137 mmol/L (135-145); Total Protein 6.7 g/dL (6.5-8.0)
[2023-12-12 08:49] LABS: Carbohydrate Antigen 19-9 30 U/mL (<34)
== END 2023-12-11 10:05 | disposition home or self-care (01) ==
LOC: HO.LAB 10:04
PROVIDERS: PCP Internal Medicine Medical Oncology; Visit Provider Internal Medicine Medical Oncology
DX: R17 Unspecified jaundice (principal); E78.5 Hyperlipidemia, unspecified; R79.89 Other specified abnormal findings of blood chemistry
CPT/HCPCS: 36415; 80053; 82977; 86301

== ENCOUNTER 2024-03-29 07:41 | Outpatient (REF) | payer MEDICARE, OTHER, SELFPAY ==
--- NOTE | 2024-03-29 07:59 | ECG_ITS ---
Test Reason : z01.818 pre op Blood Pressure : */* mmHG Vent. 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
== END 2024-03-29 07:42 | disposition home or self-care (01) ==
LOC: HO.LAB 07:41
PROVIDERS: PCP Internal Medicine Medical Oncology; Visit Provider Internal Medicine Medical Oncology
DX: Z01.818 Encounter for other preprocedural examination (principal)
CPT/HCPCS: 93005

== ENCOUNTER → 2024-03-29 07:59 | Outpatient (BNV) | payer MEDICARE, OTHER, SELFPAY | PROVIDERS: PCP Internal Medicine Medical Oncology; Visit Provider Internal Medicine Cardiovascular Disease | DX: R00.1 Bradycardia, unspecified (principal); R94.31 Abnormal electrocardiogram [ECG] [EKG] | CPT/HCPCS: 93010 ==

== ENCOUNTER 2024-04-04 00:52 | Emergency (ER) | payer MEDICARE, OTHER, SELFPAY ==
[2024-04-04] VITALS (19 sets, daily range): BP systolic 45–113; BP diastolic 29–82; PULSE 57–109; RESP 22–40; TEMP 36.1–38.2; O2SAT 93–96; BMI 21.4
--- NOTE | ~2024-04-04 | CT_ITS ---
CLINICAL HISTORY: severe hypotension, high lactate CT chest without contrast Comparison: None Findings: Examination limited by artifact and lack of intravenous contrast. The heart is enlarged. No significant pericardial effusion. Coronary artery disease. Atherosclerotic vascular disease with no aneurysm of the thoracic aorta. Xefpy-ytnjbzz-azxr-left pleural effusions with bilateral lower lobe pulmonary opacities either atelectasis or pneumonia. Fluid with mottled air on the right which is a likely under the diaphragm. 5 mm left thyroid lobe nodule. Dilated fluid-filled thoracic esophagus with [id number] hiatal hernia. Upper abdominal pneumoperitoneum with fluid and mottled air on right side of upper abdomen. Soft tissue emphysema at the thoracoabdominal junction anteriorly and minimally along the right-sided chest wall. Diffuse demineralization. Degenerative changes in the shoulders dyagz-udriqwx-mopp-left. Degenerative changes of the thoracic spine with mild compression of superior endplates at multiple levels likely nonacute. IMPRESSION: 1. Vccin-scvpaei-isvl-left pleural effusions and bilateral lower lobe airspace opacities either atelectasis or pneumonia. 2. Dilated thoracic esophagus with intraluminal fluid throughout the esophagus with orqpt-[id number] hiatal hernia. Patient is at risk for aspiration. 3. Upper abdominal free air and free fluid on the right with mottled air in the fluid. Mild right-sided chest wall emphysema. 4. Additional nonacute findings in the chest. This document has been electronically signed by: Marilee López MD on 04/04/2024 04:19:50
--- NOTE | ~2024-04-04 | XR_ITS ---
CLINICAL HISTORY: [place], hypotension 1 view chest x-ray Comparison: None Findings: The heart is enlarged. Atherosclerotic vascular disease of aortic arch. Significantly elevated right hemidiaphragm with right basilar opacity. Small right pleural effusion not excluded. Left lung is clear. No pneumothorax. No acute fracture. Severe degenerative changes in the right shoulder. Tubing on right side of the abdomen. IMPRESSION: 1. Elevated right hemidiaphragm with right basilar opacity either atelectasis or pneumonia. Small right pleural effusion not excluded. 2. Cardiomegaly. This document has been electronically signed by: Marilee López MD on 04/04/2024 02:35:16
--- NOTE | ~2024-04-04 | CT_ITS ---
CLINICAL HISTORY: Sepsis s p lap riaz [address] abdomen and pelvis without contrast Comparison: CT/SR - ABD PELVIS WITH CONT 19920 - 01/24/17 15:51 EST Findings: Bilateral basilar airspace opacities in [id number]-fewl-left pleural effusions. Interval cholecystectomy. 2 stents are demonstrated in the bowel duct extending into the duodenum. Perihepatic free fluid is demonstrated with mottled air and there is small amount of free air in the upper and mid abdomen likely related to the recent surgery. Also fluid and mottled air in the gallbladder fossa. Mild perisplenic free fluid. Limited evaluation of the unenhanced liver with possible intrahepatic biliary ductal dilatation. Unenhanced pancreas appears atrophic. Thickening of bilateral adrenal glands. No renal or ureteral stones with no hydronephrosis or hydroureter. Yxyix-rj-dyrgktor hiatal hernia fluid-filled and the stomach is distended with an air-fluid level. Bowel gas pattern is nonobstructive. Diverticulosis. Inflammatory stranding in the intra-abdominal fat more so on the right side with moderate pelvic free fluid. Pelvic structures suboptimally visualized due to significant beam hardening artifact from right hip prosthesis. There is a Brower catheter balloon presumably in the urinary bladder. No evidence of pneumatosis. Atherosclerotic vascular disease with no aneurysm of the abdominal aorta. Diffuse demineralization, levocurvature of the lumbar spine suggestive of scoliosis with multilevel degenerative disc disease. Right hip arthroplasty. Scattered in anterior abdominal wall likely related to recent surgery. IMPRESSION: 1. Status post cholecystectomy with 2 biliary stents in likely intrahepatic biliary ductal dilatation. 2. Free fluid and free air with perihepatic free fluid mottled air/gas as well as fluid and mottled gas/air in the gallbladder fossa. Infection should be considered. 3. Moderate hiatal hernia filled with fluid with gastric distention air-fluid level in the stomach. 4. No bowel obstruction. Diverticulosis. 5. Additional findings as described. This document has been electronically signed by: Marilee López MD on 04/04/2024 04:32:28
--- NOTE | 2024-04-04 00:59 | ECG_ITS ---
Test Reason : HYPOTENSION Blood Pressure : */* mmHG Vent. 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 rate has increased by 54 bpm Nonspecific T wave abnormality now evident in Inferior leads Nonspecific T wave abnormality now evident in Anterior leads Referred By: Jonathan Mendoza Electronically Signed By: MARIE POP
--- NOTE | 2024-04-04 00:59 | ED.GENADULT ---
HPI - General Adult General Chief complaint: Altered Mental Status Stated complaint: Increased Confusion Time Seen by Provider: 04/04/24 00:59 History of Present Illness ED Provider: Reji GARG narrative: The patient is an 84-year-old woman who had surgery 3 days ago on MondayApril 01. She had a scheduled laparoscopic cholecystectomy. The patient left the hospital the following day on Monday. She has been complaining of pain related to the surgical sites since getting home and has been taking oxycodone. Apparently she seemed reasonably well this morning although she was still taking the oxycodone for the postsurgical pain. She took a nap this evening but when she woke up from the nap she seemed very confused and weak and the family called 911. When paramedics arrived they found the patient confused and hypotensive. The paramedics said that there was also a period of bradycardia for which the patient was given a dose of atropine. The patient arrived confused and was not really able to articulate any complaints. She did not seem to be complaining of any specific headache, chest pain, or abdominal pain. The family does not report any history of coughing or diarrhea or vomiting. Related Data Home Medications ?Medication ?Instructions ?Recorded ?Confirmed amlodipine 10 mg tablet 10 mg PO DAILY 03/23/20 05/05/20 atenolol 50 mg tablet 50 mg PO QAM 03/23/20 05/05/20 cetirizine 10 mg tablet 10 mg PO DAILY 03/23/20 05/05/20 cholecalciferol (vitamin D3) 25 25 mcg PO DAILY 03/23/20 05/05/20 mcg (1,000 unit) tablet furosemide 20 mg tablet 20 mg PO DAILY 03/23/20 05/05/20 loperamide 2 mg capsule 2 mg PO QID PRN 03/23/20 05/05/20 omeprazole 20 mg capsule,delayed 20 mg PO DAILY 03/23/20 05/05/20 release potassium chloride 10 mEq 20 meq PO QAM 03/23/20 05/05/20 tablet,extended release prochlorperazine maleate 5 mg 10 mg PO Q6H PRN nausea 03/23/20 05/05/20 tablet simvastatin 20 mg tablet 20 mg PO DAILY 03/23/20 05/05/20 tramadol 50 mg tablet 50 mg PO TID PRN 03/23/20 05/05/20 trazodone 50 mg tablet 50 mg PO BEDTIME 03/23/20 05/05/20 hydromorphone 2 mg tablet mg PO 04/27/20 05/05/20 lacosamide 100 mg tablet 100 mg PO BID 04/27/20 05/05/20 enoxaparin 40 mg/0.4 mL mg subcut 05/05/20 05/05/20 subcutaneous syringe lacosamide 50 mg tablet 50 mg PO BEDTIME 05/05/20 05/05/20 Previous Rx's ?Medication ?Instructions ?Recorded warfarin 2 mg tablet 2 mg PO DAILY #90 tabs 02/12/20 oxycodone 5 mg tablet 5 mg PO Q6H PRN pain #20 tabs 07/15/23 Allergies Allergy/AdvReac Type Severity Reaction Status Date / Time penicillin V Allergy Unknown Rash Verified 04/04/24 01:04 Penicillins [PENICILLINS] Allergy Unknown RASH Verified 04/04/24 01:04 Review of Systems Review of Systems: Yes all other systems are reviewed and are negative PMFSH Social History Social History Advance Directives: No Advance Directives Information Provided: Yes Physical Exam ED Vital Signs: Vital Signs - 24 hr 04/04/24 00:59 04/04/24 01:31 04/04/24 01:35 Temperature 100.8 F H Pulse Rate 98 103 H 102 H Respiratory Rate 40 H 30 H Blood Pressure 45/29 L 91/64 88/48 L Pulse Oximetry 94 Oxygen Delivery Method Nasal Cannula Oxygen Flow Rate 04/04/24 01:36 04/04/24 01:41 04/04/24 01:41 Temperature Pulse Rate 109 H 105 H 106 H Respiratory Rate 33 H 30 H Blood Pressure 89/45 L 87/51 L 87/51 L Pulse Oximetry 96 Oxygen Delivery Method Nasal Cannula Oxygen Flow Rate 2 04/04/24 01:46 04/04/24 01:46 04/04/24 02:11 Temperature Pulse Rate 107 H 107 H 103 H Respiratory Rate 33 H Blood Pressure 87/51 L 100/55 L 107/53 L Pulse Oximetry Oxygen Delivery Method Oxygen Flow Rate 04/04/24 02:21 04/04/24 02:31 04/04/24 02:41 Temperature Pulse Rate 104 H 106 H 104 H Respiratory Rate Blood Pressure 96/51 L 100/51 L 106/60 Pulse Oximetry Oxygen Delivery Method Oxygen Flow Rate 04/04/24 02:51 04/04/24 03:19 04/04/24 03:20 Temperature 97.0 F 97.0 F Pulse Rate 103 H 57 Respiratory Rate 22 H Blood Pressure 94/52 L 90/50 L Pulse Oximetry 93 Oxygen Delivery Method Nasal Cannula Oxygen Flow Rate 3 04/04/24 03:20 04/04/24 03:25 04/04/24 03:35 Temperature Pulse Rate 102 H 102 H 102 H Respiratory Rate Blood Pressure 90/50 L 91/52 L 104/53 L Pulse Oximetry Oxygen Delivery Method Oxygen Flow Rate BMI result Body Mass Index 21.4 Const Other: The patient looked extremely ill. She was confused and weak to the point of flaccidity. HENMT Other: Face was symmetrical. Mucous membranes looked dry. Eyes Other: Pupils were small and equal, conjunctivae clear Neck Other: No JVD Resp Other: Mild increased work of breathing. No vianey crackles or wheezes. Cardio Other: The patient was somewhat tachycardic. No definite murmur. GI Other: The patient has dressings on the sites of recent laparoscopic surgery. No distinct abdominal tenderness. No distention. Skin Other: Skin is pale and dry Neuro Other: The patient arrived very confused and with a diminished level of consciousness. She answered very simple questions. No obvious facial asymmetry. No obvious dysarthria. Extremities were very weak almost to the point of flaccidity but she seemed to have symmetrical tone. Extrem Other: No obvious calf swelling or tenderness. No obvious asymmetry. Medications Administered Generic Name Dose Route Start Last Admin Trade Name Freq PRN Reason Stop Dose Admin Norepinephrine Bitartrate 8 mg in 250 mls @ 0 mls/hr 04/04/24 01:45 04/04/24 03:35 Levophed IVCONT 0.11 mcg/kg/min .Q0M MARY ANN 9.92 mls/hr Titration Protocol Per Protocol Discontinued Medications Generic Name Dose Route Start Last Admin Trade Name Freq PRN Reason Stop Dose Admin Cefepime HCl 2 gm in 50 mls @ 100 mls/hr 04/04/24 01:38 04/04/24 02:20 Maxipime IV 04/04/24 02:07 Infused ONCE ONE Infusion Vancomycin HCl 1,250 mg/ 250 mls @ 166.667 mls/hr 04/04/24 01:38 04/04/24 02:05 Sodium Chloride IV 04/04/24 03:07 166.67 mls/hr ONCE ONE Administration Sodium Chloride 1,000 mls @ 999 mls/hr 04/04/24 01:45 04/04/24 02:56 Ns IV 04/04/24 02:45 Infused .Q1H1M MARY ANN Infusion Lactated Ringer's 1,000 mls @ 999 mls/hr 04/04/24 01:45 04/04/24 03:10 Lr IV 04/04/24 02:45 Infused .Q1H1M MARY ANN Infusion Metronidazole 500 mg in 100 mls @ 100 mls/hr 04/04/24 02:23 04/04/24 02:32 Flagyl IV 04/04/24 03:22 100 mls/hr ONCE ONE Administration Procedures Central Line Placement Right Femoral: Time Out Performed: Yes Patient Placed on Monitor/Pulse Ox: Yes Prep: mask, gown and gloves Central Line Prep: Chlorhexidine scrub Local Anesthetic: lidocaine 1% Ultrasound Used for Placement: Yes Central Line Lumen Inserted: triple Post Procedure: sutured in place, good blood return, all ports aspirated, flushed, capped and sterile dressing applied Patient Tolerated Procedure: well Complications: none Additional Comments: Ultrasound was used but the vein was quite collapsed and therefore the vein was hard to visualize on ultrasound. Procedure was essentially done without the benefit of ultrasound. The blood return from all 3 ports was quite dark and there was no suggestion of any high pressure and therefore I was quite confident the catheter was placed in the vein and not the artery. Medical Decision Making Medical Decision Making [facility] Narrative: The patient is almost 3 days postop from a scheduled laparoscopic cholecystectomy at [facility]. She became acutely confused at home this evening and was very weak and hypotensive. Rectal temperature was 100.6 degrees. She was slightly tachypneic but not in overt respiratory distress and she was not severely hypoxic. Her abdomen was not obviously tender. Peripheral access was difficult but at 1st line was started in the left arm. She was given fluids and given her degree of hypotension she was also started on peripheral norepinephrine.. Given her degree of obvious acute illness I felt the patient would likely need triple-lumen access and so I placed a triple-lumen catheter in the patient's right femoral vein. This was done under usual sterile protocol. The underlying skin was somewhat macerated from patient's pannus however. The patient was started on empiric antibiotics of cefepime (she has a penicillin allergy), vancomycin, and metronidazole. She was given 2 L of crystalloid. Given her hypotension and a lactate of 11 the patient meets criteria for septic shock. She had 35% bands and a CRP of 45. Chest x-ray suggested a possible right lower lobe infiltrate. BUN and creatinine are elevated suggesting an acute kidney injury. Noncontrast CT scans of the abdomen and pelvis and chest were done. Given that the patient is 3 days postop from surgery at [facility] I contacted Dr. Coleman of the surgical service. Recommendation was for transfer to the emergency room at [facility]. I spoke to the emergency physician Dr. Hernandez who accepted the patient in transfer. Lab Data 04/04/24 01:40 04/04/24 01:40 Labs: Lab Results 04/04/24 04/04/24 04/04/24 Range/Units 00:57 01:40 01:52 WBC 5.7 (4.8-10.8) X10*3/uL RBC 3.36 L (4.20-5.50) X10*6/uL Hgb 11.3 L (12.0-16.0) g/dl Hct 35.4 L (37.0-47.0) % MCV 105.4 H (80.0-98.0) fL MCH 33.6 H (27.0-33.0) pg MCHC 31.9 (31.0-35.0) g/dl RDW 14.4 (11.0-16.0) % Plt Count 178 D (160-400) X10*3/uL MPV 10.4 (9.4-12.3) fL Immature Gran % (Auto) Cancelled Neut % (Auto) Cancelled Lymph % (Auto) Cancelled [place] % (Auto) Cancelled Eos % (Auto) Cancelled Baso % (Auto) Cancelled Lymph # (Auto) Cancelled [place] # (Auto) Cancelled Eos # (Auto) Cancelled Baso # (Auto) Cancelled Abs Immat Gran (auto) Cancelled Absolute Neuts (auto) Cancelled Absolute Nucleated RBC 0.020 H (0.0-0.012) X10*3/uL Nucleated RBC % (auto) 0.4 H (0.0-0.2) /100WBC Neutrophils % (Manual) 32 L (45-73) % Band Neutrophils % 35 H (3-5) % Lymphocytes % (Manual) 23 (20-40) % Monocytes % (Manual) 5 (2-11) % Metamyelocytes % 5 % Abs Neuts (Manual) 3.8 (2.0-8.3) X10*3/uL Lymphocytes # (Manual) 1.3 (1.2-4.9) X10*3/uL Monocytes # (Manual) 0.3 (0.1-1.2) X10*3/uL Metamyelocytes # 0.3 X10*3/uL Toxic Vacuolation PRESENT Dohle Bodies PRESENT Platelet Estimate NORMAL (NORMAL) Large Platelets PRESENT Plt Morphology Comment NOTED RBC Morphology NOTED Polychromasia 1+ (0-2) /OIF Macrocytosis 1+ (5-14) /OIF Ovalocytes 1+ (5-14) /OIF Cook Sta Cells 2+ (3-5) /OIF Schistocytes 1+ (0-2) /OIF PT 13.7 H (10.9-12.4) SEC INR 1.2 H (0.9-1.1) VBG pH 7.19 L* (7.32-7.43) VBG pCO2 29 mmHg VBG pO2 46 mmHg VBG HCO3 11 L (22-26) mmol/L VBG O2 Saturation 64.0 % VBG Base Excess -15.0 mmol/L Sodium 137 (135-145) mmol/L Potassium 4.6 (3.3-5.1) mmol/L Chloride 110 H (96-108) mmol/L Carbon Dioxide 13 L (22-29) mmol/L Anion Gap 19 (12-20) BUN 48 H (9-16) mg/dL Creatinine 2.03 H (0.5-1.4) mg/dL Estim Creat Clear Calc 13.8 Estimated GFR 23 POC Glucose 75 (60-115) mg/dL Random Glucose 80 (60-115) mg/dL Lactic Acid 11.0 H* (0.5-2.0) mmol/L Calcium 9.1 D (8.4-10.2) mg/dL Magnesium 2.2 (1.6-2.6) mg/dL Total Bilirubin 1.4 H (0.0-1.0) mg/dL Direct Bilirubin 0.9 H (0.0-0.5) mg/dL AST 40 H (5-31) U/L ALT 14 (0-31) U/L Alkaline Phosphatase 75 (39-117) U/L Troponin I High Sens 32.2 H (<3.5-17.0) ng/L C-Reactive Protein 45.95 H (< or = 0.50) mg/dL B-Natriuretic Peptide 582 H (<100) pg/mL Total Protein 5.5 L (6.5-8.0) g/dL Albumin 2.6 L (3.5-5.0) g/dL Lipase < 4 L (8-78) U/L Urine Color Urine Appearance Urine pH (5.0-9.0) Ur Specific [place] (1.005-1.025) Urine Protein (Neg-Trace) mg/dL Urine Glucose (UA) (Negative) mg/dL Urine Ketones (Negative) mg/dL Urine Blood (Negative) Urine Nitrite (Negative) Ur Leukocyte Esterase (Negative) Urine RBC (0-2) /HPF Urine WBC (0-5) /HPF Ur Squamous Epith Cells (0-2) /HPF Urine Bacteria (None Seen) Hyaline Casts (0-2) /LPF Urine Opiates Screen (Not Detect) Ur Buprenorphine Scrn (Not Detect) ng/mL Ur Oxycodone Screen (Not Detect) ng/mL Urine Methadone Screen (Not Detect) ng/mL Urine Fentanyl Screen (Not Detect) Ur Barbiturates Screen (Not Detect) Ur Phencyclidine Scrn (Not Detect) Ur Amphetamines Screen (Not Detect) U Benzodiazepines Scrn (Not Detect) Urine Cocaine Screen (Not Detect) U Marijuana (THC) Screen (Not Detect) Ethyl Alcohol < 10 mg/dL Influenza Type A (PCR) NEGATIVE (Negative) Influenza Type B (PCR) NEGATIVE (Negative) RSV RNA Qual (PCR) NEGATIVE (Negative) SARS-CoV-2 RNA (RT-PCR) NEGATIVE (Negative) Blood Type Antibody Screen 04/04/24 Range/Units 02:40 WBC (4.8-10.8) X10*3/uL RBC (4.20-5.50) X10*6/uL Hgb (12.0-16.0) g/dl Hct (37.0-47.0) % MCV (80.0-98.0) fL MCH (27.0-33.0) pg MCHC (31.0-35.0) g/dl RDW (11.0-16.0) % Plt Count (160-400) X10*3/uL MPV (9.4-12.3) fL Immature Gran % (Auto) Neut % (Auto) Lymph % (Auto) [place] % (Auto) Eos % (Auto) Baso % (Auto) Lymph # (Auto) [place] # (Auto) Eos # (Auto) Baso # (Auto) Abs Immat Gran (auto) Absolute Neuts (auto) Absolute Nucleated RBC (0.0-0.012) X10*3/uL Nucleated RBC % (auto) (0.0-0.2) /100WBC Neutrophils % (Manual) (45-73) % Band Neutrophils % (3-5) % Lymphocytes % (Manual) (20-40) % Monocytes % (Manual) (2-11) % Metamyelocytes % % Abs Neuts (Manual) (2.0-8.3) X10*3/uL Lymphocytes # (Manual) (1.2-4.9) X10*3/uL Monocytes # (Manual) (0.1-1.2) X10*3/uL Metamyelocytes # X10*3/uL Toxic Vacuolation Dohle Bodies Platelet Estimate (NORMAL) Large Platelets Plt Morphology Comment RBC Morphology Polychromasia /OIF Macrocytosis /OIF Ovalocytes /OIF Cook Sta Cells /OIF Schistocytes /OIF PT (10.9-12.4) SEC INR (0.9-1.1) VBG pH (7.32-7.43) VBG pCO2 mmHg VBG pO2 mmHg VBG HCO3 (22-26) mmol/L VBG O2 Saturation % VBG Base Excess mmol/L Sodium (135-145) mmol/L Potassium (3.3-5.1) mmol/L Chloride (96-108) mmol/L Carbon Dioxide (22-29) mmol/L Anion Gap (12-20) BUN (9-16) mg/dL Creatinine (0.5-1.4) mg/dL Estim Creat Clear Calc Estimated GFR POC Glucose (60-115) mg/dL Random Glucose (60-115) mg/dL Lactic Acid (0.5-2.0) mmol/L Calcium (8.4-10.2) mg/dL Magnesium (1.6-2.6) mg/dL Total Bilirubin (0.0-1.0) mg/dL Direct Bilirubin (0.0-0.5) mg/dL AST (5-31) U/L ALT (0-31) U/L Alkaline Phosphatase (39-117) U/L Troponin I High Sens (<3.5-17.0) ng/L C-Reactive Protein (< or = 0.50) mg/dL B-Natriuretic Peptide (<100) pg/mL Total Protein (6.5-8.0) g/dL Albumin (3.5-5.0) g/dL Lipase (8-78) U/L Urine Color Dark Yellow Urine Appearance Clear Urine pH 5.5 (5.0-9.0) Ur Specific [place] 1.025 (1.005-1.025) Urine Protein 30 (1+) H (Neg-Trace) mg/dL Urine Glucose (UA) Negative (Negative) mg/dL Urine Ketones Negative (Negative) mg/dL Urine Blood Negative (Negative) Urine Nitrite Negative (Negative) Ur Leukocyte Esterase Negative (Negative) Urine RBC 0-2 (0-2) /HPF Urine WBC 0-5 (0-5) /HPF Ur Squamous Epith Cells 0-2 (0-2) /HPF Urine Bacteria None Seen (None Seen) Hyaline Casts 3-5 (0-2) /LPF Urine Opiates Screen POSITIVE H (Not Detect) Ur Buprenorphine Scrn Not Detected (Not Detect) ng/mL Ur Oxycodone Screen Positive H (Not Detect) ng/mL Urine Methadone Screen Not Detected (Not Detect) ng/mL Urine Fentanyl Screen POSITIVE H (Not Detect) Ur Barbiturates Screen Not Detected (Not Detect) Ur Phencyclidine Scrn Not Detected (Not Detect) Ur Amphetamines Screen Not Detected (Not Detect) U Benzodiazepines Scrn Not Detected (Not Detect) Urine Cocaine Screen Not Detected (Not Detect) U Marijuana (THC) Screen Not Detected (Not Detect) Ethyl Alcohol mg/dL Influenza Type A (PCR) (Negative) Influenza Type B (PCR) (Negative) RSV RNA Qual (PCR) (Negative) SARS-CoV-2 RNA (RT-PCR) (Negative) Blood Type O Negative Antibody Screen NEGATIVE Critical Care Time Critical Care Time Critical Care Time: Yes Total Critical Care Time: 60 Attestation: The patient was critically ill with a high probability of imminent or life-threatening deterioration. ?I spent greater than 30 minutes of discontinuous time evaluating the patient, delivering critical care at the bedside, discussing evaluating data with consultants. ?Critical care time does not include time spent performing separately billable procedures or teaching. ?Time spent performing critical care with 60 minutes. Discharge Plan Discharge Clinical Impression: Septic shock Patient Disposition: [facility] Transfer Details: [facility] Emergency room Prescriptions: No Action oxycodone 5 mg tablet 5 mg PO Q6H PRN (Reason: pain) Qty: 20 0RF Rx Instructions: Partial Fill upon patient request. warfarin 2 mg tablet 2 mg PO DAILY Qty: 90 0RF Protocol: Dose Management Condition: Monday (Week One) Dose/Route: 2 mg Instruction: 1 x 2 mg milliliter Condition: Monday Dose/Route: 1 mg Instruction: 0.5 x 2 mg milliliters Condition: Monday Dose/Route: 2 mg Instruction: 1 x 2 mg milliliter Condition: Monday Dose/Route: 1 mg Instruction: 0.5 x 2 mg milliliters Condition: Dose/Route: 2 mg Instruction: 1 x 2 mg milliliter Condition: Monday Dose/Route: 1 mg Instruction: 0.5 x 2 mg milliliters Condition: Monday Dose/Route: 2 mg Instruction: 1 x 2 mg milliliter Condition: Monday (Week Two) Dose/Route: 2 mg Instruction: 1 x 2 mg milliliter Condition: Monday Dose/Route: 1 mg Instruction: 0.5 x 2 mg milliliters Condition: Monday Dose/Route: 2 mg Instruction: 1 x 2 mg milliliter Condition: Monday Dose/Route: 1 mg Instruction: 0.5 x 2 mg milliliters Condition: Dose/Route: 2 mg Instruction: 1 x 2 mg milliliter Condition: Monday Dose/Route: 1 mg Instruction: 0.5 x 2 mg milliliters Condition: Monday Dose/Route: 2 mg Instruction: 1 x 2 mg milliliter Protocol Text: Adjustment Start Date: Monday05/05/20 INR Value: 2.8 INR Date: 05/05/20 Additional Instructions: EAT A SERVING OF GREENS OR BLUEBERRIES TO HELP LOWER THE INR JUST A LITTLE atenolol 50 mg tablet 50 mg PO QAM furosemide 20 mg tablet 20 mg PO DAILY potassium chloride 10 mEq tablet extended release 20 meq PO QAM cetirizine 10 mg tablet 10 mg PO DAILY trazodone 50 mg tablet 50 mg PO BEDTIME loperamide 2 mg capsule 2 mg PO QID PRN prochlorperazine maleate 5 mg tablet 10 mg PO Q6H PRN (Reason: nausea) tramadol 50 mg tablet 50 mg PO TID PRN cholecalciferol (vitamin D3) 25 mcg (1,000 unit) tablet 25 mcg PO DAILY omeprazole 20 mg capsule,delayed release(DR/EC) 20 mg PO DAILY simvastatin 20 mg tablet 20 mg PO DAILY amlodipine 10 mg tablet 10 mg PO DAILY Vimpat 100 mg tablet 100 mg PO BID hydromorphone 2 mg tablet PO enoxaparin 40 mg/0.4 mL syringe subcut Protocol: Dose Management Condition: Monday (Week One) Dose/Route: 2 mg Instruction: 1 x 2 mg milliliter Condition: Monday Dose/Route: 1 mg Instruction: 0.5 x 2 mg milliliters Condition: Monday Dose/Route: 2 mg Instruction: 1 x 2 mg milliliter Condition: Monday Dose/Route: 1 mg Instruction: 0.5 x 2 mg milliliters Condition: Dose/Route: 2 mg Instruction: 1 x 2 mg milliliter Condition: Monday Dose/Route: 1 mg Instruction: 0.5 x 2 mg milliliters Condition: Monday Dose/Route: 2 mg Instruction: 1 x 2 mg milliliter Condition: Monday (Week Two) Dose/Route: 2 mg Instruction: 1 x 2 mg milliliter Condition: Monday Dose/Route: 1 mg Instruction: 0.5 x 2 mg milliliters Condition: Monday Dose/Route: 2 mg Instruction: 1 x 2 mg milliliter Condition: Monday Dose/Route: 1 mg Instruction: 0.5 x 2 mg milliliters Condition: Dose/Route: 2 mg Instruction: 1 x 2 mg milliliter Condition: Monday Dose/Route: 1 mg Instruction: 0.5 x 2 mg milliliters Condition: Monday Dose/Route: 2 mg Instruction: 1 x 2 mg milliliter Protocol Text: Adjustment Start Date: Monday05/05/20 INR Value: 2.8 INR Date: 05/05/20 Additional Instructions: EAT A SERVING OF GREENS OR BLUEBERRIES TO HELP LOWER THE INR JUST A LITTLE Vimpat 50 mg tablet 50 mg PO BEDTIME Print Language: Panamanian
[2024-04-04] MEDS: Norepinephrine Bitartrate/D5W 8 MG/250 ML PLAST..BAG 4.51 MG IVCONT (01:35)
[2024-04-04] MEDS: 0.9 % Sodium Chloride 1,000 ML 999 ML IV (01:45)
[2024-04-04] MEDS: cefEPime HCl/D5W 2 GM/50 ML PIGGYBACK IV (01:48)
[2024-04-04 01:54] LABS: Venous Blood Gas Refer to POC result
[2024-04-04] MEDS: Lactated Ringers 1,000 ML 999 ML IV (01:54)
[2024-04-04 01:55] LABS: Hematocrit 35.4 % (37.0-47.0); Hemoglobin 11.3 g/dl (12.0-16.0); Mean Corpuscular HGB Conc 31.9 g/dl (31.0-35.0); Mean Corpuscular Hemoglobin 33.6 pg (27.0-33.0); Mean Corpuscular Volume 105.4 fL (80.0-98.0); Mean Platelet Volume 10.4 fL (9.4-12.3); NRBC Pct Auto 0.4 /100WBC (0.0-0.2); Platelet Count 178 X10*3/uL (160-400); Red Blood Count 3.36 X10*6/uL (4.20-5.50); Red Cell Distribution Width 14.4 % (11.0-16.0)
[2024-04-04 02:01] LABS: Glucose, Whole Blood 75 mg/dL (60-115)
[2024-04-04 02:01] LABS: VBG HCO3 11 mmol/L (22-26); VBG pCO2 29 mmHg; VBG pH 7.19 (7.32-7.43); VBG pO2 46 mmHg
[2024-04-04 02:01] LABS: INTERNATIONAL NORM RATIO 1.2 (0.9-1.1); Prothrombin Time 13.7 SEC (10.9-12.4)
[2024-04-04 02:04] LABS: WBC ABN SCTR FOR CBC 1; White Blood Count 5.7 X10*3/uL (4.8-10.8)
[2024-04-04] MEDS: vancomycin HCL 1,250 MG in 0.9 % Sodium Chloride 250 ML 166.67 MG IV (02:05)
[2024-04-04 02:12] LABS: Alanine Aminotransferase 14 U/L (0-31); Albumin Level 2.6 g/dL (3.5-5.0); Alkaline Phosphatase 75 U/L (39-117); Anion Gap 19 (12-20); Aspartate Amino Transferase 40 U/L (5-31); Bilirubin Direct 0.9 mg/dL (0.0-0.5); Bilirubin Total 1.4 mg/dL (0.0-1.0); Blood Urea Nitrogen 48 mg/dL (9-16); C Reactive Protein 45.95 mg/dL (< or = 0.50); Calcium 9.1 mg/dL (8.4-10.2); Carbon Dioxide 13 mmol/L (22-29); Chloride 110 mmol/L (96-108); Creatinine Clr Calc Pharmacy 13.8; Estimated Glomerular Filt Rate 23; Ethanol < 10 mg/dL; Glucose Random 80 mg/dL (60-115); Lipase < 4 U/L (8-78); Magnesium 2.2 mg/dL (1.6-2.6); Potassium 4.6 mmol/L (3.3-5.1); Sodium 137 mmol/L (135-145); Total Protein 5.5 g/dL (6.5-8.0)
[2024-04-04 02:16] LABS: B Type Natriuretic Peptide 582 pg/mL (<100); Troponin-I High Sensitivity 32.2 ng/L (<3.5-17.0)
[2024-04-04 02:24] LABS: Lymphocytes Absolute Manual 1.3 X10*3/uL (1.2-4.9); Lymphocytes Percent Manual 23 % (20-40); Metamyelocytes Absolute 0.3 X10*3/uL; Metamyelocytes Percent 5 %; Monocytes Absolute Manual 0.3 X10*3/uL (0.1-1.2); Monocytes Percent Manual 5 % (2-11); Neutrophils Absolute Manual 3.8 X10*3/uL (2.0-8.3); Neutrophils Percent Manual 32 % (45-73)
[2024-04-04 02:27] LABS: Burr Cells 2+ (3-5) /OIF; Dohle Bodies PRESENT; Large Platelet PRESENT; Ovalocytes 1+ (5-14) /OIF; Platelet Estimate NORMAL (NORMAL); Platelet Morphology Comment NOTED; Polychromasia 1+ (0-2) /OIF; RBC Morphology NOTED; Toxic Vacuolation PRESENT
[2024-04-04 02:28] LABS: Macrocytosis 1+ (5-14) /OIF
[2024-04-04 02:29] LABS: Schistocytes 1+ (0-2) /OIF
[2024-04-04 02:30] LABS: Band Neutrophils Percent 35 % (3-5)
[2024-04-04 02:31] LABS: Influenza A PCR NEGATIVE (Negative); Influenza B PCR NEGATIVE (Negative); Resp Syncy Virus RNA Qual PCR NEGATIVE (Negative); SARS COV2 PCR INHOUSE NEGATIVE (Negative)
[2024-04-04] MEDS: metroNIDAZOLE/NS 500 MG/100 ML PIGGYBACK 100 MG IV (02:32)
[2024-04-04 02:50] LABS: Appearance Urine Clear; Color Urine Dark Yellow; Glucose Urine UA Negative (Negative); Leukocyte Esterase Urine Negative (Negative); Nitrite Urine Negative (Negative); PH 5.5 (5.0-9.0); Specific Gravity - Urine 1.025 (1.005-1.025); UMIC TRIGGER UACC YES; Urine Blood Negative (Negative); Urine Ketones Negative (Negative); Urine Protein 30 (1+) mg/dL (Neg-Trace)
[2024-04-04 02:58] LABS: Amphetamine Screen Urine Not Detected (Not Detect); Barbiturates, Urine Not Detected (Not Detect); Benzodiazepines Screen Urine Not Detected (Not Detect); Buprenorphine Scr Not Detected (Not Detect); Cannabinoid Screen Urine Not Detected (Not Detect); Cocaine Screen Urine Not Detected (Not Detect); Fentanyl, urine POSITIVE (Not Detect); Methadone Screen, Urine Not Detected (Not Detect); Opiate Screen Urine POSITIVE (Not Detect); Oxycodone Screen Urine Positive (Not Detect); Phencyclidine Screen Urine Not Detected (Not Detect)
[2024-04-04 03:12] LABS: Bacteria Urine None Seen (None Seen); RBC Urine 0-2 /HPF (0-2); Squamous Epithelial Cell Urine 0-2 /HPF (0-2); WBC Urine 0-5 /HPF (0-5)
[2024-04-04 03:52] LABS: Reflex Lactate? Lactic Acid Added
[2024-04-04 04:18] LABS: ~Lactic Acid-LAB USE ONLY 9.1 mmol/L (0.5-2.0)
[2024-04-04 04:25] LABS: Troponin-I High Sensitivity 48.1 ng/L (<3.5-17.0)
--- NOTE | 2024-04-04 04:47 | PC.NURSE ---
Addendum entered by Yarelis Aceves 04/04/24 05:06: 0410: Report given to Segun RODRIGUEZ at [facility] [place], Pt will be transported via [facility]. Original Note: Pt BIBA from home, on transport to ED Pt became hypotensive to 74/67 and sari 34 for EMS. EMS gave one dose of atropine IV. In ED Pt SBP in the 40s. Rectal temp of 100.8. Pt difficult stick, Unsuccessful IV line attempted multiple times, provider Mino Mendoza at bedside, placed tipple lumen central line to right growing. Pt started on Levophed per protocol. Pt A&Ox2, Pt able to verbalize name and . Daughter at bedside and Per daughter, Pt became altered and confused yesterday, and decrease PO intake. Pt usually ambulates with walker and was too weak to do so. Daughter also reports Pt does not wear O2. Pt requiring 3L of O2 via NC. 16F temp sensing sanchez placed. Skin intact, cool to touch, Pt has surgical tape to ABD, no wound dehiscence noted, per daughter Pt had gallbladder removed on Monday at [facility] [place] and Dc on Monday.
[2024-04-04 05:59] LABS: Reflex Lactate? 2 Y
--- NOTE | 2024-04-10 13:02 | MHC.SHP ---
Pre-Procedural Eval Section A - 24 Hr Update-Section A only Date of Service: 04/10/24 The patient is an INPATIENT: No Changes since office visit: Yes Cold of Flu in the past 2 weeks The patient has been examined within 24 hours of the surgical procedure. The History & Physical has been completed within 30 days and I have reviewed it.: Yes Section B - Complete if H&P > 30 days Chief Complaint: Increased Confusion Allergies: Allergies Allergy/AdvReac Type Severity Reaction Status Date / Time penicillin V Allergy Unknown Rash Verified 04/04/24 01:04 Penicillins [PENICILLINS] Allergy Unknown RASH Verified 04/04/24 01:04 Plan I have reviewed the history and physical and performed a pertinent physical examination on my patient. No changes have occurred unless specified. Time Spent With Patient Time: Total time managing care of this patient today ____ minutes.
== END 2024-04-04 05:08 | disposition short-term general hospital (02) ==
PROVIDERS: Emergency Provider Emergency Medicine; PCP Internal Medicine Medical Oncology
DX: A41.51 Sepsis due to Escherichia coli [E. coli] (principal); R65.21 Severe sepsis with septic shock; R50.9 Fever, unspecified; I95.9 Hypotension, unspecified; R53.1 Weakness; R00.0 Tachycardia, unspecified; Z90.49 Acquired absence of other specified parts of digestive tract; Z03.818 Encounter for observation for suspected exposure to other biological agents ruled out; Z79.01 Long term (current) use of anticoagulants
CPT/HCPCS: 0241U; 36415; 36556; 71045; 71250; 74176; 80048; 80076; 80307; 81001; 82803; 82947; 83605; 83690; 83735; 83880; 84484; 85007; 85025; 85027; 85610; 86140; 86850; 86900; 86901; 87040; 87077; 87186; 87205; 93005; 96361; 96365; 96366; 96367; 96375; 99285; 99291; J0692; J1836; J3371; J7120

== ENCOUNTER → 2024-04-04 00:59 | Outpatient (BNV) | payer MEDICARE, OTHER, SELFPAY | PROVIDERS: Emergency Provider Emergency Medicine; PCP Internal Medicine Medical Oncology; Visit Provider Specialist | DX: A41.9 Sepsis, unspecified organism (principal); J90 Pleural effusion, not elsewhere classified | CPT/HCPCS: 71045; 71250; 74176 ==

== ENCOUNTER → 2024-04-04 00:59 | Outpatient (BNV) | payer MEDICARE, OTHER, SELFPAY | PROVIDERS: Emergency Provider Emergency Medicine; PCP Internal Medicine Medical Oncology; Visit Provider Internal Medicine | DX: I44.0 Atrioventricular block, first degree (principal); I21.19 ST elevation (STEMI) myocardial infarction involving other coronary artery of inferior wall; R00.0 Tachycardia, unspecified | CPT/HCPCS: 93010 ==